=== PATIENT | female | born 1990 | race Caucasian/White ===

== ENCOUNTER 2019-08-18 08:51 | Day surgery (SDC) | payer BC ==
[~2019-08-18 08:51] MED LIST: ACEBUTCAFT PO; Amoxicillin500 MG PO; IBUP600 PO; METO50 PO; Naprosyn500 MG PO; PROC10 PO; PROC25S PR
--- NOTE | 2019-08-18 10:00 | NUR ---
PT ARRIVED INTO RADIOLOGY AT 914. DUE TO DELAY, RADIOLOGIST DECIDED TO START ANOTHER PROCEDURE AND THEN COME BACK TO THIS PT. PT STATES UNDERSTANDING. PT LYING COMFORTABLEY IN BED WITH WARM BLANKET AND STATES NO FURTHER NEEDS AT THIS TIME. WILL CONTINUE TO [facility].
--- NOTE | 2019-08-18 10:56 | NUR ---
LATE ENTRY 1051 5 MG LOPRESSOR IV GIVEN FOR HR > 62.
--- NOTE | 2019-08-18 11:10 | NUR ---
PT'S HR 58-62. PT TRANSFERED TO RADIOLOGY PROCEDURE ROOM VIA DEANNE.
--- NOTE | 2019-08-18 11:34 | NUR ---
1115 5MG METOPROLOL IV FOR HR > 62
--- NOTE | 2019-08-18 11:34 | NUR ---
METOPROLOL IV 5 MG FOR HR > 62. PT TOLERATED WELL.
--- NOTE | 2019-08-18 11:42 | NUR ---
PROCEDURE END. PT TOLERATED WELL.
--- NOTE | 2019-08-18 11:58 | NUR ---
Patient up to Ambulate independently. Gait steady. Discharge instructions reviewed with patient. Patient verbalizes understanding. Copy given to patient to take home. PT AMBULATED WITH RN TO CAR DRIVEN BY HER FATHER. PT DID NOT RECIEVE ANY SEDATION.
== END 2019-08-18 23:17 | disposition home or self-care (01) ==
LOC: CT 08:51 → ORD 08:51 → ORSCMMR 08:52 → CT 09:00 → ORD 23:17
DX: R07.9 Chest pain, unspecified (principal); R06.00 Dyspnea, unspecified; R00.2 Palpitations
CPT/HCPCS: 75574; Q9967

== ENCOUNTER → 2019-11-03 | Outpatient (CLI) | payer BC ==
[2019-11-06 09:08] LABS: CHLAMYDIA BY NAA Negative (Negative); GONOCOCCUS BY NAA Negative (Negative); TRICH VAG BY NAA Negative (Negative)
== END ==
LOC: LAB SHORT 13:53 → LAB EV 13:53
PROVIDERS: Nurse Practitioner
DX: R10.9 Unspecified abdominal pain (principal)
CPT/HCPCS: 87070; 87086; 87205; 87491; 87591; 87661

== ENCOUNTER 2021-05-05 19:35 | Emergency (ER) | payer SELFPAY ==
[~2021-05-05] VITALS: Ht 165.1 cm; Wt 104.8 kg
[2021-05-05] MEDS ORDERED: CEPH500 PO (21:35)
== END 2021-05-05 21:37 | disposition home or self-care (01) ==
LOC: ER 19:35
DX: L02.214 Cutaneous abscess of groin (principal); Z79.2 Long term (current) use of antibiotics
CPT/HCPCS: 76857; 99283-25; A9270

== ENCOUNTER → 2023-09-06 | Outpatient (CLI) | payer SELFPAY ==
[~2023-09-06] MED LIST changes: +CEPH500 PO
[2023-09-09 14:33] LABS: APTIMA MEDIA TYPE Urine; C. TRACHOMATIS BY TMA Negative (Negative); N. GONORRHOEAE BY TMA Negative (Negative); SPECIMEN SOURCE Urine
== END | disposition home or self-care (01) ==
LOC: LAB SHORT 19:09
PROVIDERS: Family Medicine
DX: N89.8 Other specified noninflammatory disorders of vagina (principal)
CPT/HCPCS: 87491; 87591